=== PATIENT | male | born 1960 | race Caucasian/White ===

== ENCOUNTER 2019-09-04 16:29 | Emergency (ER) | payer OTHER ==
[2019-09-04] MEDS ORDERED: IBUPROFEN 800 MG TABLET PO STA (16:34)
[2019-09-04] MEDS ORDERED: HYDROcod/ACETAM 5/325 MG TABLET PO STA (16:34)
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
[2019-09-04 16:40] VITALS: BP 138/77
--- NOTE | 2019-09-04 16:52 | XRAY Report ---
PROCEDURE: Clavicle RT INDICATIONS: shoulder inj TECHNIQUE: 2 views of the clavicle were acquired. COMPARISON: None. FINDINGS: Bones: Comminuted displaced shaft fracture of the right clavicle with significant overriding. No othe r fractures or dislocations noted. Soft tissues: No suspicious soft tissue calcifications. IMPRESSION: Comminuted shaft fracture of the right clavicle with significant overriding and displacement. Reviewed by: Bello Colon MD on 09/04/2019 4:50 PM PDT Approved by: Bello Colon MD on 09/04/2019 4:50 PM PDT Station ID: [id number]
== END 2019-09-04 17:16 | disposition home or self-care (01) ==
LOC: ED 16:29
DX: S42.021A Displaced fracture of shaft of right clavicle, initial encounter for closed fracture (principal); V18.0XXA Pedal cycle driver injured in noncollision transport accident in nontraffic accident, initial encounter; Y93.55 Activity, bike riding; Z11.59 Encounter for screening for other viral diseases
CPT/HCPCS: 73000; 87635; 99283; 99284; A9270; 81599